=== PATIENT | female | born 1950 | race Caucasian/White ===

== ENCOUNTER 2017-06-09 10:30 | Emergency (ER) | payer MEDICARE, OTHER ==
[2017-06-09] MEDS ORDERED: DIAZEPAM 5 MG TABLET ONE (11:05)
== END 2017-06-09 13:01 | disposition home or self-care (01) ==
LOC: EDH 10:30
DX: S49.91XA Unspecified injury of right shoulder and upper arm, initial encounter (principal); M81.0 Age-related osteoporosis without current pathological fracture; Z98.890 Other specified postprocedural states; X50.9XXA Other and unspecified overexertion or strenuous movements or postures, initial encounter; Y93.89 Activity, other specified; Y92.89 Other specified places as the place of occurrence of the external cause; Y99.8 Other external cause status
CPT/HCPCS: 73218